=== PATIENT | male | born 1975 | race Caucasian/White ===

== ENCOUNTER → 2021-02-23 | Outpatient (CLI) | payer OTHER ==
--- NOTE | 2021-02-23 18:45 | XR ---
EXAMINATION TYPE: XR shoulder complete LT DATE OF EXAM: 02/23/2021 COMPARISON: NONE HISTORY: . [id number],S20.20XA,S30.0XXA,S70.11XA. TECHNIQUE: Internal rotation, external rotation, and scapular Y views of the left shoulder. FINDINGS: No acute fracture. No dislocation. Joint spaces and alignment are normal. Normal mineraliza tion. No significant soft tissue swelling. IMPRESSION: No acute fracture or dislocation.
--- NOTE | 2021-02-23 18:49 | XR ---
EXAMINATION TYPE: XR lumbar spine 2 or 3V DATE OF EXAM: 02/23/2021 CLINICAL HISTORY: Pain. Trauma. TECHNIQUE: Frontal and lateral images of the lumbar spine are obtained. COMPARISON: None FINDINGS: There are 5 lumbar type vertebral bodies identified. The lumbar spine shows satisfactory alignment without evidence of acute fracture or dislocation. Vertebral body heights and disk space he ights are within normal limits. No spondylolisthesis The overlying soft tissue appears unremarkable. IMPRESSION: No acute fracture or subluxation of the lumbar spine.
--- NOTE | 2021-02-24 07:58 | XR ---
EXAMINATION TYPE: XR thoracic spine complete DATE OF EXAM: 02/24/2021 CLINICAL HISTORY: pain TECHNIQUE: Frontal, lateral, and swimmer's view of thoracic spine are obtained. COMPARISON: None. FINDINGS: Thoracic spine show satisfactory alignment without evidence of acute fracture or dislocatio n. Vertebral body heights are preserved. Disc spaces are well preserved. Visualized ribs are unrem arkable. IMPRESSION: No acute fracture or dislocation is seen in the thoracic spine. ICD 10 NO FRACTURE, INIT IAL EVALUATION
--- NOTE | 2021-02-24 08:24 | XR ---
EXAMINATION TYPE: XR Hip Complete RT, XR femur RT DATE OF EXAM: 02/23/2021 CLINICAL HISTORY: Pain TECHNIQUE: AP and frogleg views of the right hip are obtained. AP and lateral views of the right fem ur are obtained. COMPARISON: None FINDINGS: There is no acute fracture or dislocation of the right hip or right femur. Degenerative ch anges of the right hip joint and right knee joint. Dystrophic calcification near the right intertroch anteric femur. The overlying soft tissue appears unremarkable. IMPRESSION: There is no acute fracture or dislocation of the right femur or right hip.
== END | disposition home or self-care (01) ==
LOC: RADXRMAIN 16:27
PROVIDERS: ATTEND Emergency Medicine
DX: S39.92XA Unspecified injury of lower back, initial encounter (principal); M89.8X5 Other specified disorders of bone, thigh; M25.551 Pain in right hip; M54.6 Pain in thoracic spine
CPT/HCPCS: 72072; 72100; 73502